=== PATIENT | female | born 1965 | race Caucasian/White ===

== ENCOUNTER 2024-04-26 09:15 | Outpatient (AMB) | payer MEDICAID, SELFPAY ==
--- NOTE | 2024-04-26 09:30 | A.OFFVIS_ITS ---
Vital Signs 04/26/24 09:39 Height 5 ft Weight 186 lb 8 oz BMI 36.4 BP 138/71 Blood Pressure Location Rt brachial Position Sitting Pulse 83 Pulse Source Pulse Oximeter Pulse Oximetry (%) 98 Oxygen Delivery Method Room Air Intake Visit Reasons: Left Cervical Radiculopathy/Left Shoulder Pain Intake Note: Pain today 03/29 Identity Access Management Architect Required: Yes Identity Access Management Architect Language: Iranian Identity Access Management Architect Services: Identity Access Management Architect Offered & Declined Identity Access Management Architect Name: Son Accompanied by: Son Allergies No Known Allergies Allergy (Verified 04/26/24 09:35) HPI HPI Left Cervical Radiculopathy/Left Shoulder Pain: Details: Which Patient is a pleasant 58 years female who speaks Iranian and Cypriot languages with prior history of cervical radiculopathy and diabetes, presents today for initial evaluation of left shoulder pain. Denies any recent trauma, injury or falls. Patient is accompanied by her son. No doctor of naturopathic medicine utilized as this provider is fluent in Iranian. Patient reports 3 months left shoulder pain without any inciting events. She presents with significant difficulty with overhead reaches, lifting her left arm or backside pocket reach due to pain. Any movement or range of motion of the left shoulder causes her pain. She is unable to sleep on left side due to shoulder pain that extends to her lateral upper arm. Reports occasional numbness and tingling in left 2-5th fingers. Patient completed recent left shoulder MRI at [facility] on 04/13/24, this report is not available for review today. Denies any previous formal physical therapy, chiropractic adjustments, massages, therapeutic injections or shoulder procedures. Pain affects her daily activities and functioning, sleep, mood, work and social interactions. 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 Pain is worse during the day with highest intensity at 10/10 and least severe during night time, rated at 7/10. Denies any fever or chills, dizziness, shortness of breaths, weakness, numbness, tingling, locking, bladder or bowel dysfunction or saddle anesthesia. Location: Left shoulder radiates down left arm Duration: 3 months Characteristics of symptom or complaint: Aching, stabbing, lancinating, throbbing, sharp, dull, heavy Aggravating or associated factors: Any movement, overhead reaching, lifting, pulling, backside pocket reaches Relieving factors: Meloxicam, heat pad, rest, activity modifications Treatment: Left shoulder xray [facility] Medical History (Updated 04/26/24 @ 10:40 by ERIK Veronica) Eczema Pelvic and perineal pain Other chronic pain Pain in left shoulder Radiculopathy, cervical region Social History (Updated 04/26/24 @ 09:40 by Chloe Braun) Alcohol intake: never Patient Tobacco Use Status: Never used Tobacco Review of Systems Const All systems reviewed & are unremarkable except as noted in HPI and below Physical Exam Vital Signs: Last Vital Signs Pulse 83 04/26/24 09:39 BP 138/71 04/26/24 09:39 Pulse Ox 98 04/26/24 09:39 Oxygen Delivery Method Room Air 04/26/24 09:39 BMI result Body Mass Index 36.4 General: Appears afebrile. Alert and oriented. Mood and affect appropriate. Follows and participates in conversation appropriately. Respiratory effort is unlabored. No cough. No nasal discharge. Able to transition from sit to stand unassisted. Ambulates with bilaterally normal heel strike and toe off. Extrem General: Yes capillary refill normal, Yes no clubbing, cyanosis or edema and Yes no calf tenderness Left upper extremity: shoulder/upper arm (Increased pain with overhead reaches. +pain with empty can test) Details: inspection abnormal, tenderness Location: over the biceps tendon, over the subacromial bursa and over the deltoid bursa, axillary nerve sensory function normal and abnormal ROM (Flexion and supination against resistance reproduces pain.); no swelling, no ecchymosis, no crepitus, no deformity and no unsual warmth Results Reviewed Results Reviewed: No imaging results are available for review today. Assessment & Plan Assessment & Plan (1) Pain in left shoulder: Code(s): M25.512 - Pain in left shoulder Category: Medical (2) Tendinosis of left shoulder: Code(s): M67.814 - Other specified disorders of tendon, left shoulder Category: Medical (3) Pain in left shoulder: Code(s): M25.512 - Pain in left shoulder Category: Medical (4) Painful arc syndrome of left shoulder: Code(s): M75.102 - Unspecified rotator cuff tear or rupture of left shoulder, not specified as traumatic Category: Medical Plan Medical release request sent to [facility] for recent left shoulder MRI imaging report. Patient appears to have a combination of rotator cuff tendinopathy as well as bicipital tendinitis of the left shoulder. Patient would like to proceed with formal physical therapy prior to interventional treatments. Script provided for PT closer to patient's home per patient's request. Script provided for topical diclofenac gel. Continue activity modifications, heat alternating with ice, rest, elevation, NSAIDs and Tylenol. All questions and concerns have been answered and patient agreed with the treatment plan. Follow up after PT and sooner as needed. Orders: Orders PT Evaluation and Treatment Today M25.512 - Pain in left shoulder, M67.814 - Other specified disorders of tendon, left shoulder Medications: New diclofenac sodium 1% (Arthritis Pain (diclofenac)) 4 grams topical QID 100 grams 0RF pain 30 days M25.512 - Pain in left shoulder Coding Level of Care Code New Pt Level 4 (85175) Complex EM visit Add On G2211 Diagnoses Pain in left shoulder M25.512 Tendinosis of left shoulder M67.814 Painful arc syndrome of left shoulder M75.102
[2024-04-26 09:39] VITALS: BP 138/71; PULSE 83; O2SAT 98; BMI 36.4
== END 2024-04-26 10:11 | disposition home or self-care (01) ==
LOC: HO.PMC 09:16
PROVIDERS: PCP Physician Assistant; Referring Provider Physician Assistant; Visit Provider Nurse Practitioner Family
DX: M25.512 Pain in left shoulder (principal); M67.814 Other specified disorders of tendon, left shoulder; M75.102 Unspecified rotator cuff tear or rupture of left shoulder, not specified as traumatic
CPT/HCPCS: 99204

== ENCOUNTER → 2024-04-26 09:15 | Outpatient (BNVA) | payer MEDICAID, SELFPAY | PROVIDERS: PCP Physician Assistant; Referring Provider Physician Assistant; Visit Provider Nurse Practitioner Family | DX: M25.512 Pain in left shoulder (principal); M67.814 Other specified disorders of tendon, left shoulder; M75.102 Unspecified rotator cuff tear or rupture of left shoulder, not specified as traumatic | CPT/HCPCS: 99212 ==

== ENCOUNTER 2024-06-11 09:06 | Outpatient (AMB) | payer MEDICAID, SELFPAY ==
[2024-06-11 09:20] VITALS: BP 129/64; PULSE 86; O2SAT 97; BMI 36.9
--- NOTE | 2024-06-11 09:20 | A.OFFVIS_ITS ---
Vital Signs 06/11/24 09:20 Height 5 ft Weight 189 lb BMI 36.9 BP 129/64 Blood Pressure Location Rt brachial Position Sitting Pulse 86 Pulse Source Pulse Oximeter Pulse Oximetry (%) 97 Oxygen Delivery Method Room Air Intake Visit Reasons: FU discuss shoulder inj Intake Note: Pain today 8/10 Sales And Marketing Coordinator Required: Yes Sales And Marketing Coordinator Language: Cymraes Sales And Marketing Coordinator Services: Sales And Marketing Coordinator Offered & Declined Sales And Marketing Coordinator Name: Provider is fluent in Cymraes Accompanied by: Daughter Allergies No Known Allergies Allergy (Verified 06/11/24 09:20) HPI Comments Details: Patient presents today for follow up to discuss left shoulder MRI results and discuss left shoulder injection. Unfortunately, we did not receive MRI report from [facility]. Per [facility] on the phone today, patient only underwent brain and cervical spine MRI reports. Patient reports she did complete MRI of left shoulder and forgot to bring it to today's visit. She also states her PCP office has MRI report. Patient endorses persistent and worsening left shoulder pain with difficulty with internal and external rotations, house chores, ADLs, and is worse at night after daily activities. Pain is rated at 8/10. Patient is requesting left shoulder cortisone injection. She reports minimal improvement with active PT and home exercise program. Reports increased pain with exercises, movements, activities or sleeping on her left side. Denies any recent cough, cold, infection, fever or other significant changes in medical history since last office visit. PRIOR: Patient is a pleasant 58 years female who speaks Cymraes and Taiwanese languages with prior history of cervical radiculopathy and diabetes, presents today for initial evaluation of left shoulder pain. Denies any recent trauma, injury or falls. Patient is accompanied by her son. No ceramic mold designer utilized as this provider is fluent in Cymraes. Patient reports 3 months left shoulder pain without any inciting events. She presents with significant difficulty with overhead reaches, lifting her left arm or backside pocket reach due to pain. Any movement or range of motion of the left shoulder causes her pain. She is unable to sleep on left side due to shoulder pain that extends to her lateral upper arm. Reports occasional numbness and tingling in left 2-5th fingers. Patient completed recent left shoulder MRI at [facility] on 04/13/24, this report is not available for review today. Denies any previous formal physical therapy, chiropractic adjustments, massages, therapeutic injections or shoulder procedures. Pain affects her daily activities and functioning, sleep, mood, work and social interactions. 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 Pain is worse during the day with highest intensity at 10/10 and least severe during night time, rated at 7/10. Denies any fever or chills, dizziness, shortness of breaths, weakness, numbness, tingling, locking, bladder or bowel dysfunction or saddle anesthesia. Location: Left shoulder radiates down left arm Duration: 3 months Characteristics of symptom or complaint: Aching, stabbing, lancinating, throbbing, sharp, dull, heavy Aggravating or associated factors: Any movement, overhead reaching, lifting, pulling, backside pocket reaches Relieving factors: Meloxicam, heat pad, rest, activity modifications Treatment: Left shoulder xray [facility] Medical History Eczema Pelvic and perineal pain Other chronic pain Pain in left shoulder Radiculopathy, cervical region Social History Alcohol intake: never Patient Tobacco Use Status: Never used Tobacco Review of Systems Const All systems reviewed & are unremarkable except as noted in HPI and below Physical Exam Vital Signs: Last Vital Signs Pulse 86 06/11/24 09:20 BP 129/64 06/11/24 09:20 Pulse Ox 97 06/11/24 09:20 Oxygen Delivery Method Room Air 06/11/24 09:20 BMI result Body Mass Index 36.9 General: Appears afebrile. Acute distress due to left shoulder pain. Alert and oriented. Mood and affect appropriate. Follows and participates in conversation appropriately. Respiratory effort is unlabored. No cough. Able to transition from sit to stand unassisted. Ambulates with bilaterally normal heel strike and toe off. Neck Neck: Yes full ROM, Yes no lymphadenopathy, Yes supple, No anterior neck swelling, Yes no JVD, No prominent supraclavicular fat pad and Yes prominent dorsocervical fat pad Extrem General: Yes capillary refill normal, Yes no clubbing, cyanosis or edema and Yes no calf tenderness Left upper extremity: shoulder/upper arm (Increased pain with overhead reaches. +pain with empty can test) Details: inspection abnormal, tenderness Location: over the biceps tendon, over the subacromial bursa and over the deltoid bursa, axillary nerve sensory function normal and abnormal ROM (Flexion and supination against resistance reproduces pain.); no swelling, no ecchymosis, no crepitus and no unsual warmth Results Reviewed Results Reviewed: No imaging results are available for review today. Assessment & Plan Assessment & Plan (1) Pain in left shoulder: Code(s): M25.512 - Pain in left shoulder Category: Medical (2) Tendinosis of left shoulder: Code(s): M67.814 - Other specified disorders of tendon, left shoulder Category: Medical (3) Painful arc syndrome of left shoulder: Code(s): M75.102 - Unspecified rotator cuff tear or rupture of left shoulder, not specified as traumatic Category: Medical (4) Arthritis of left shoulder: Code(s): M19.012 - Primary osteoarthritis, left shoulder Category: Medical Plan Medical release request sent to [facility] and PCP office for recent left shoulder MRI imaging report and most recent A1C level. Continue activity modifications, heat alternating with ice, rest, elevation, NSAIDs and Tylenol and Physical therapy. Script provided for short script of tramadol for moderate-severe pain. Side effects, precautions, safety and administration of medication was discussed with patient and her daughter. Tentatively schedule left shoulder intra-articular steroid injection with local and fluoroscopy. Expectations, risks and benefits were reviewed. Patient is aware she will be contacted to schedule this procedure. All questions were answered and the patient is in agreement of plan. Follow-up after injections and sooner as needed. Medications: New tramadol 50 mg PO Q8H 15 days PRN 30 tabs 0RF pain M25.512 - Pain in left shoulder, M67.814 - Other specified disorders of tendon, left shoulder, M75.102 - Unspecified rotator cuff tear or rupture of left shoulder, not specified as traumatic Coding Level of Care Code Est Pt Level 4 (08200) Complex EM visit Add On G2211 Diagnoses Pain in left shoulder M25.512 Tendinosis of left shoulder M67.814 Painful arc syndrome of left shoulder M75.102 Arthritis of left shoulder M19.012
== END 2024-06-11 09:44 | disposition home or self-care (01) ==
PROVIDERS: PCP Physician Assistant; Visit Provider Nurse Practitioner Family
DX: M25.512 Pain in left shoulder (principal); M67.814 Other specified disorders of tendon, left shoulder; M75.102 Unspecified rotator cuff tear or rupture of left shoulder, not specified as traumatic; M19.012 Primary osteoarthritis, left shoulder
CPT/HCPCS: 99214

== ENCOUNTER → 2024-06-11 09:06 | Outpatient (BNVA) | payer MEDICAID, SELFPAY | PROVIDERS: PCP Physician Assistant; Visit Provider Nurse Practitioner Family | DX: M25.512 Pain in left shoulder (principal); M67.814 Other specified disorders of tendon, left shoulder; M75.102 Unspecified rotator cuff tear or rupture of left shoulder, not specified as traumatic; M19.012 Primary osteoarthritis, left shoulder | CPT/HCPCS: 99212 ==

== ENCOUNTER 2024-07-03 06:07 | Outpatient (REF) | payer MEDICAID, SELFPAY ==
--- NOTE | ~2024-07-03 | FL_ITS ---
EXAMINATION: FLUOROSCOPY GUIDANCE FOR NEEDLE PLACEMENT CLINICAL INFORMATION: M19.012 - Primary osteoarthritis, left shoulder COMPARISON: None available. TECHNIQUE: Fluoroscopy guidance was provided to referring physician during intervention. No radiologist was present. FINDINGS/ FL/FL guidance in treatment room IMPRESSION: A single digital images obtained in the OR of left shoulder with contrast opacifying left shoulder joint space. No bony abnormality seen. No visible fracture. AC joint space is reduced with periarticular spurring. FLUOROSCOPY TIME: 0.1 minutes DOSE AREA PRODUCT: 0.0168 uGy-m2 (microgray-meter squared) Electronically signed by: Sung Whitfield MD 07/11/2024 07:55 AM [facility]
== END 2024-07-03 06:08 | disposition home or self-care (01) ==
LOC: CF 06:07
PROVIDERS: Visit Provider Anesthesiology
DX: M19.012 Primary osteoarthritis, left shoulder (principal); M75.102 Unspecified rotator cuff tear or rupture of left shoulder, not specified as traumatic; M67.814 Other specified disorders of tendon, left shoulder; M25.512 Pain in left shoulder
CPT/HCPCS: 20610; J2003; J2795; J3301; Q9967

== ENCOUNTER 2024-07-03 07:15 | Outpatient (AMB) | payer MEDICAID, SELFPAY ==
--- NOTE | 2024-07-03 07:20 | MHC.OFFVIS ---
Vital Signs 07/03/24 07:28 BP 164/74 H Blood Pressure Location Lt brachial Position Sitting Pulse 99 Pulse Source Pulse Oximeter Pulse Oximetry (%) 98 Oxygen Delivery Method Room Air Intake Visit Reasons: LEFT INTRA-ARTICULAR SHOULDER INJECTION Allergies No Known Allergies Allergy (Verified 06/11/24 09:20) [facility] Medical History Eczema Pelvic and perineal pain Other chronic pain Pain in left shoulder Radiculopathy, cervical region Social History Alcohol intake: never Patient Tobacco Use Status: Never used Tobacco Assessment & Plan Assessment & Plan (1) Pain in left shoulder: Code(s): M25.512 - Pain in left shoulder Category: Medical (2) Tendinosis of left shoulder: Code(s): M67.814 - Other specified disorders of tendon, left shoulder Category: Medical (3) Painful arc syndrome of left shoulder: Code(s): M75.102 - Unspecified rotator cuff tear or rupture of left shoulder, not specified as traumatic Category: Medical (4) Arthritis of left shoulder: Code(s): M19.012 - Primary osteoarthritis, left shoulder Category: Medical Plan Left shoulder steroid injection. Xavier is very pleasant 58 years old female who is suffering from left shoulder arthropathy. She came today to the operating room to receive left shoulder steroid injection. Informed consent was explained to the patient were risks of bleeding infection peripheral nerve damage were explained. Patient is diabetic she is on Ozempic to treat this condition, she was explained that for the next 20 days she needs to measure her blood sugar and if her blood sugar critically elevated to address this issue to either her primary care physician or emergency room. She was taken to the operating room where she was positioned prone on the operating table. Time-out was performed delineating her name and date of , nature of the procedure site of the injection allergies. Her left shoulder was prepped with ChloraPrep and draped with sterile utility self adhesive towels. C-arm was brought over the operating room and sq picture of glenohumeral joint on the left was demonstrated on the screen. The superior medial portion of the joint was chosen as the site of the injection. The projection of this portion of the joint to the skin was injected with lidocaine 1% forming skin wheal. After that 22 gauge 3-1/2 inch spinal needle was inserted through the skin wheal and advanced to were the joint under anterior posterior view in tunnel vision fashion. When tip of the needle entered the capsule of the joint injection of the contrast was performed demonstrating arthrogram. After that injection of the ropivacaine 0.5% mixed with Kenalog 40 mg was performed. After that needle was removed sterile Band-Aid was applied. The patient tolerated the procedure well. She was taken outside of the operating room to the recovery room where she recovered uneventfully. Orders: Orders FL guidance in treatment room Today M19.012 - Primary osteoarthritis, left shoulder, M25.512 - Pain in left shoulder, M67.814 - Other specified disorders of tendon, left shoulder, M75.102 - Unspecified rotator cuff tear or rupture of left shoulder, not specified as traumatic Coding Level of Care Code Procedure Only Diagnoses Pain in left shoulder M25.512 Tendinosis of left shoulder M67.814 Painful arc syndrome of left shoulder M75.102 Arthritis of left shoulder M19.012
[2024-07-03 07:28] VITALS: BP 164/74; PULSE 99; O2SAT 98
== END 2024-07-03 07:54 | disposition home or self-care (01) ==
LOC: HO.PMCPRC 07:15
PROVIDERS: PCP Physician Assistant; Visit Provider Anesthesiology
DX: M25.512 Pain in left shoulder (principal); M67.814 Other specified disorders of tendon, left shoulder; M75.102 Unspecified rotator cuff tear or rupture of left shoulder, not specified as traumatic; M19.012 Primary osteoarthritis, left shoulder
CPT/HCPCS: 20610; 77002